=== PATIENT | female | born 1990 | race Caucasian/White ===

== ENCOUNTER 2019-09-21 00:28 | Emergency (ER) | payer SELFPAY ==
[2019-09-21 00:48] VITALS: BP 192/128
== END 2019-09-21 04:48 | disposition left against medical advice (07) ==
LOC: ED 00:28
DX: R03.0 Elevated blood-pressure reading, without diagnosis of hypertension (principal); Z53.21 Procedure and treatment not carried out due to patient leaving prior to being seen by health care provider